=== PATIENT | male | born 1985 | race Caucasian/White ===

== ENCOUNTER 2018-08-11 14:39 | Emergency (ER) | payer BC ==
[~2018-08-11] VITALS: Ht 177.8 cm; Wt 63.5 kg
[~2018-08-11 14:39] MED LIST: ACETAMINOPHEN-H1 TA2 PO; DOXYCYCLINE100 M3 PO; PREDNISONE10 MG PO; VENTOLIN H0.09 MG/AC INH; XANAX0.25 MG PO
[2018-08-11] MEDS ORDERED: AMOXICILLIN500 M2 PO (15:04)
[2018-08-11] MEDS ORDERED: Motrin,Rufen800 MG PO (15:04)
== END 2018-08-11 15:20 | disposition home or self-care (01) ==
LOC: ED 14:39
DX: K04.7 Periapical abscess without sinus (principal)

== ENCOUNTER 2020-04-19 08:45 | Emergency (ER) | payer BC ==
[~2020-04-19] VITALS: Ht 177.8 cm; Wt 63.5 kg
[~2020-04-19 08:45] MED LIST changes: +AMOXICILLIN500 M2 PO; +Motrin,Rufen800 MG PO
[2020-04-19 09:29] LABS: BASO % 0.5 % (0.0-1.0); EOS # 0.3 10*3/uL (0.0-0.4); HEMATOCRIT 45.7 % (42.0-52.0); LYMPH # 1.7 10*3/uL (1.3-4.4); LYMPH % 22.9 % (27.0-41.0); MEAN CELL VOLUME 92.5 fl (80.0-94.0); MEAN CORPUSCULAR HGB 30.4 pg (27.0-31.0); MEAN CORPUSCULAR HGB CONC 32.8 g/dl (33.0-37.0); MEAN PLATELET VOLUME 10.7 fl (9.6-12.3); MONO # 0.5 10*3/uL (0.1-1.0); MONO % 6.9 % (3.0-9.0); NEUT # 4.8 10*3/uL (2.3-7.9); NEUT % 65.4 % (47.0-73.0); PLATELET COUNT AUTOMATED 212 10*3/uL (130-400); RED BLOOD COUNT 4.94 10*6/uL (4.50-5.90); RED CELL DISTRI WIDTH 12.5 % (0-14.5); WHITE BLOOD COUNT 7.3 10*3/uL (4.8-10.8)
[2020-04-19 09:42] LABS: ALBUMIN 4.1 gm/dl (3.1-4.5); ALKALINE PHOSPHATASE 58 U/L (45-117); BUN 10 mg/dl (7-24); CHLORIDE 106 mmol/L (98-107); CREATININE 1.02 mg/dL (0.70-1.30); POTASSIUM 4.2 mmol/L (3.5-5.1); SGOT/AST 17 IU/L (3-35); SGPT/ALT 24 U/L (12-78); SODIUM 142 mmol/L (136-145); TOTAL PROTEIN 7.6 gm/dL (6.4-8.2)
== END 2020-04-19 10:06 | disposition home or self-care (01) ==
LOC: ED 08:45
PROVIDERS: Student in an Organized Health Care Education/Training Program
DX: R55 Syncope and collapse (principal); Z79.899 Other long term (current) drug therapy